=== PATIENT | female | born 1980 | race Caucasian/White ===

== ENCOUNTER 2020-11-20 05:16 | Inpatient (IN) | payer BC, MEDICAID ==
[2020-11-20 06:33] LABS: Appearance,Urine Clear (Clear); Bilirubin,Urine Negative (Negative); Blood,Urine Negative (Negative); Color,Urine Yellow; Glucose,Urine (UA) Trace (Negative); Ketones,Urine Negative (Negative); Leukocyte Esterase,Urine Negative (Negative); Nitrite,Urine Negative (Negative); PH, Urine 5.5 (5.0-8.0); Protein,Urine Trace (Negative); Specific Gravity,Urine 1.031 (1.001-1.035); Urobilinogen,Urine <2.0 mg/dL (<2.0)
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
[2020-11-20 06:45] LABS: Amphetamine Screen,Urine Detected (NotDetected); Barbiturate Screen,Urine Not Detected (NotDetected); Benzodiazepines Screen,Urine Not Detected (NotDetected); Cocaine Screen,Urine Not Detected (NotDetected); Methadone Screen, Urine Not Detected (NotDetected); Opiate Screen,Urine Detected (NotDetected); Oxycodone Screen, Urine Not Detected (NotDetected); Phencyclidine Screen,Urine Not Detected (NotDetected); Tricyclic Antidepressant,Urine Not Detected (NotDetected); Urn Cannabinoid Scrn Not Detected (NotDetected)
[2020-11-20 07:59] LABS: Basophils # (A) 0.1 k/uL (0-0.2); Basophils % (A) 1 %; Eosinophils # (A) 0.2 k/uL (0-0.7); Eosinophils % (A) 2 %; HCT 45.7 % (34.0-46.0); HGB 15.6 gm/dL (11.4-16.0); Lymphocytes % (A) 30 %; MCH 31.1 pg (25.0-35.0); MCHC 34.2 g/dL (31.0-37.0); MCV 90.9 fL (80.0-100.0); Mean Platelet Volume 7.1; Monocytes # (A) 0.6 k/uL (0-1.0); Monocytes % (A) 6 %; Neutrophils % (A) 60 %; Platelet Count 268 k/uL (150-450); RBC 5.03 m/uL (3.80-5.40); RDW 12.4 % (11.5-15.5)
[2020-11-20 08:18] LABS: ALT 17 U/L (4-34); AST 21 U/L (14-36); African American GFR (CKD) >90 (>60 ml/min/1.73 sqM); Albumin 4.7 g/dL (3.5-5.0); Alkaline Phosphatase 49 U/L (38-126); Anion Gap 5 mmol/L; Blood Urea Nitrogen 17 mg/dL (7-17); Calcium 9.6 mg/dL (8.4-10.2); Carbon Dioxide 31 mmol/L (22-30); Chloride 105 mmol/L (98-107); Glucose 131 mg/dL (74-99); Non-African American GFR(CKD) >90 (>60 ml/min/1.73 sqM); Potassium 3.9 mmol/L (3.5-5.1); Sodium 141 mmol/L (137-145); Total Bilirubin 0.4 mg/dL (0.2-1.3); Total Protein 7.8 g/dL (6.3-8.2)
[2020-11-20] MEDS ORDERED: HALOPERIDOL LACTATE 5 MG/ML 1 ML VIAL IM STA (11:28)
[2020-11-20] MEDS ORDERED: HALOPERIDOL LACTATE 5 MG/ML 1 ML VIAL IM PRN ×2 (11:30→14:23)
[2020-11-20] MEDS ORDERED: LORazepam 2 MG/ML INJ IM STA (11:40)
[2020-11-20] MEDS ORDERED: MAG HYDROX/AL HYDROX/SIMETH 30 ML CUP PO PRN (11:55)
[2020-11-20] MEDS ORDERED: MAGNESIUM HYDROXIDE 2,400 MG/10 ML CUP PO PRN (11:55)
[2020-11-20] MEDS ORDERED: LORazepam 2 MG/ML INJ IM PRN (11:57)
[2020-11-20] MEDS: NICOTINE 14MG/24HR PATCH TRANSDERM SCH (15:42)
[2020-11-20] MEDS: LORazepam 1 MG TAB PO PRN (21:21)
[2020-11-20] MEDS: haloperidoL 5 MG TAB PO PRN (21:21)
--- NOTE | 2020-11-21 02:18 | P.PN ---
Progress Note - Text Progress Note Date: 11/20/20 patient was not appropriate for evaluation at this time
[2020-11-21] MEDS: LORazepam 1 MG TAB PO PRN ×3 (04:33→22:20)
[2020-11-21] MEDS: ACETAMINOPHEN TAB 325 MG TAB PO PRN (04:33)
[2020-11-21] MEDS: NICOTINE 14MG/24HR PATCH TRANSDERM SCH (08:41)
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
[2020-11-21] MEDS: lamoTRIgine 25 MG TAB PO SCH ×3 (10:50→21:00)
[2020-11-21] MEDS: haloperidoL 5 MG TAB PO PRN (16:00)
[2020-11-21] MEDS: traZODone HCL 50 MG TAB PO SCH (20:59)
[2020-11-22] MEDS: lamoTRIgine 25 MG TAB PO SCH ×2 (08:24→21:45)
[2020-11-22] MEDS: NICOTINE 14MG/24HR PATCH TRANSDERM SCH (08:24)
[2020-11-22] MEDS: LORazepam 1 MG TAB PO PRN (10:10)
[2020-11-22] MEDS: haloperidoL 5 MG TAB PO PRN ×2 (10:10→19:39)
--- NOTE | 2020-11-22 10:17 | P.PN ---
Progress Note - Text Progress Note Date: 11/22/20 Interval History: Patient was seen in her room lying on her bed and was agreeable to speak to wr iter however patient did not want to leave her room today. She continues to have poor hygiene and grooming and appears to be mildly lethargic this morning. She continues to be impulsive and uncooperative with sports writer and preoccupied with discharge. She states that she wants to "meet someone" for having her brought onto the mental health floor. She continues to state that she does not need medications and when asked about which medications she believes that she needs she states that "just Ativan". She continues to display very poor insight and judgment into her treatment. She claims that she was able to sleep throughout the night and denies any overnight complaints. She states that her mood is depressed today and was feeling anxious. At this time patient denies any suicidal or homical ideations, intent or plan. Patient denies any auditory, visual hallucinations. Mental Status Exam: General Appearance: Patient appears to be disheveled in appearance, appears to be lethargic, and difficult to redirect and fairly guarded/evasive. Patient appears to have poor hygiene and grooming. Behavior: Patient is seated without any agitated behavior. Guarded/evasive. Uncooperative Speech: Patient's speech is fluent and nonpressured Mood/Affect: Patient reports their mood is "depressed", affect is congruent and constricted. Suicidality/Homicidality: Patient denies having any homicidal ideation intent or plan. Denies any suicidal ideations intent or plan Perceptions: Patient denies any visual hallucinations and denies any auditory hallucinations Though content/process: Patient is focused on discharge, minimizing her hospitalization and need for treatment. Very poor insight. Not endorsing any paranoia or delusions. Memory and concentration: AOX3, poor concentration. Judgment and insight: poor Assessment Mood disorder unspecified, rule out secondary to stimulant abuse Stimulant abuse Opioid use disorder nicotine dependence Plan: -Patient continues to meet criteria for inpatient psychiatric admission for symptom stabilization and safety. Patient has not signed adult voluntary form and medication consent and was placed in patient's chart. -Medications: Continue with Lamictal 25 mg twice a day for mood stabilization. Trazodone 25 mg daily at bedtime for insomnia/mood. -When necessary vistaril and Haldol for agitation/aggression. -NRT - nicotine patch -SW on board for discharge planning. Encouraged the patient to participate in milieu. Will continue to await deferral and court date.
[2020-11-22] MEDS: CLINDAMYCIN 150 MG CAP PO SCH ×3 (14:30→21:11)
[2020-11-22] MEDS: hydrOXYzine pamoate 25 MG CAP PO PRN (17:55)
[2020-11-22] MEDS: ACETAMINOPHEN TAB 325 MG TAB PO PRN (17:56)
[2020-11-22] MEDS ORDERED: IBUPROFEN 400 MG TAB PO PRN (18:43)
[2020-11-22] MEDS: traZODone HCL 50 MG TAB PO SCH (21:45)
--- NOTE | 2020-11-23 00:33 | P.PN ---
Progress Note - Text Progress Note Date: 11/22/20 despite several attempts made to see this patient , she is always either agitated and medicated or sleeping. per RN , no active medical concerns at this time. please notify sound physicians if any medical concerns
[2020-11-23] MEDS: ACETAMINOPHEN TAB 325 MG TAB PO PRN (01:30)
[2020-11-23] MEDS: hydrOXYzine pamoate 25 MG CAP PO PRN (01:30)
[2020-11-23] MEDS ORDERED: KETOROLAC 15 MG/ML 1 ML VIAL IM STA (02:26)
[2020-11-23] MEDS ORDERED: cloNIDine HCL 0.2 MG TAB PO STA (02:32)
[2020-11-23] MEDS: AMOXICILLIN 500 MG CAP PO SCH ×2 (02:36→08:51)
[2020-11-23 02:45] VITALS: RESP 16
--- NOTE | 2020-11-23 02:46 | P.PN ---
Progress Note - Text Progress Note Date: 11/23/20 RN notified me that patient woke up from sleep and would like to talk to me Margaret PATRICIO was with me during the interview. patient was agitated, using foul language, not happy for being here, and requesting to be discharged. she is concerned that she is not being listened to , and that she does not have mental illness or addiction problem. she is requesting pain killers to her dental pain , and for her withdrawal from vicodine which is painful , and is requesting an opioid based pain killer like morphine, dilaudid, norco .or tylenol 3. I explained to her that these medications are controlled by the psychiatrist. then she started requesting subaxone again very agitated using foul language and expressing her frustration with the hospital. Margaret PATRICIO explained to her the limitations we have with ordering subaxone. then the patient showed me her right upper molar that is hurting her, which has some swelling of the gum and irritation, I could not do full mouth exam due to patient being irritated and agitated and I was concerned for my safety. I offered the patient NSAIDs , which she refused . then suggested that she tries one time dose of toradol IM. I will start her on amoxicillin which she indicated no known allergy to penicillin. also, ordering one time dose of clonidine for h er elevated blood pressure and jitteriness from withdrawal. I ended the interview, due to patient attitude, using threatening and foul language.
[2020-11-23 07:53] VITALS: BP 141/87; PULSE 78
[2020-11-23] MEDS: NICOTINE 14MG/24HR PATCH TRANSDERM SCH (08:51)
[2020-11-23] MEDS: lamoTRIgine 25 MG TAB PO SCH (08:51)
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
[2020-11-23 10:59] VITALS: TEMP 98
== END 2020-11-23 12:12 | disposition home or self-care (01) | DRG 885 ==
LOC: EC 05:16 → 3MHU 11:52
PROVIDERS: ADMIT Psychiatry & Neurology Psychiatry; ATTEND Psychiatry & Neurology Psychiatry
DX: F39 Unspecified mood [affective] disorder (principal); F23 Brief psychotic disorder; F11.23 Opioid dependence with withdrawal; F15.10 Other stimulant abuse, uncomplicated; Z20.822 Contact with and (suspected) exposure to COVID-19; F32.9 Major depressive disorder, single episode, unspecified; F17.210 Nicotine dependence, cigarettes, uncomplicated; G47.00 Insomnia, unspecified; R45.87 Impulsiveness; K04.7 Periapical abscess without sinus; F41.9 Anxiety disorder, unspecified; Z56.0 Unemployment, unspecified; Z88.1 Allergy status to other antibiotic agents
CPT/HCPCS: 36415; 80053; 80306; 81003; 81025; 82075; 85025; 87635; 96372; 99285